=== PATIENT | female | born 1970 | race Two or more races ===

== ENCOUNTER 2016-11-01 10:45 | Outpatient (CLI) | payer OTHER ==
[~2016-11-01] VITALS: Ht 165.1 cm; Wt 60.0 kg
[2016-11-01 10:59] VITALS: BP 109/79; PULSE 86; RESP 18; Ht 165.1 cm; Wt 60.0 kg
[2016-11-01] MEDS ORDERED: MESA800T2 PO (11:17)
[2016-11-01] MEDS ORDERED: HYDR2TAB15 PO (11:17)
[2016-11-01] MEDS ORDERED: URSO250T10 PO (11:17)
--- NOTE | 2016-11-01 19:39 | CONS ---
[facility] INITIAL OUTPATIENT CONSULTATION NOTE PLACE OF SERVICE: [facility]. 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 This is a very rare tumor , and there is paucity of data regarding appropriate management. Therefore, none of our recommendations will be based on strong data. Given the wide metastasis of this disease, I believe that the patient can benefit from further chemotherapy, albeit lower dose or perhaps a different regimen that the patient could tolerate in order for us to get the most benefit from systemic chemotherapy. If the patient's tumor biology proves to be significantly responsive as it has, it may open opportunity for us to consider aggressive management in the near future, including liver resection, if we can demonstrate that the other lesions have been controlled and that there is agreement among a multidisciplinary review committee that this is the appropriate approach. I asked the patient for her permission for me to present her case in a multidisciplinary fashion, and I also held the phone conversation with Dr. Pizarro. She has already seen Dr. Machado at [facility] for a second opinion oncology, and also encouraged her to seek a surgical opinion as a second opinion as well from Dr. Chintan Goff, and depending on her insurance , I have asked our office to assist with getting her to a qualified hepatobiliary surgeon for a second opinion. I am hopeful that with aggressive multimodal treatment, which could include further chemotherapy, as well as local treatment to the liver including transarterial chemoembolization and radioembolization, that we could get the patient to a point where enough time has passed and her tumor has remained stable enough that could open up possibility of consideration for surgical resection, but I did not recommend that to be the primary approach at this time. I answered all of the patient's and her significant other's questions to the best of my ability, and I believe that they appeared to understand and agreed with the plans. With the above assessment, I have recommended the followin. Consideration for restart of systemic chemotherapy, perhaps with a lower dose or a different regimen for the patient to be able to tolerate. 2. Multidisciplinary Tumor Board presentation. 3. Consideration for transarterial chemoembolization with perhaps combination radioembolization as well. 4. Even though these tumors are not very sensitive to radiation therapy to consider possible focal radiation therapy to the bones if it was deemed appropriate by radiation oncology and by our multidisciplinary tumor boards. 5. Follow up after above is done with continued surveillance CTs and possible consideration for surgical intervention if the disease proves to be stable. Thank you again for allowing us to participate in the care of this very pleasant lady and her wonderful family. If there are any questions, please feel free to call me at [phone]. TOTAL VISIT TIME: 60 minutes, of which more than half was spent in face-to- face discussion with the patient, discussions with her boyfriend, as well as coordination of care between multiple physicians and providers. UPDATED CLINICAL SUMMARY: A very pleasant, but unfortunate, 46-year-old young lady with some comorbidities including primary sclerosing cholangitis and ulcerative colitis diagnosed in 1994. An otherwise fairly healthy woman who was diagnosed with a liver mass on an ultrasound done in March 2016 that was initially part of workup of her elevated liver function tests. This ultrasound unfortunately showed a 3.6-cm gallbladder mass on 03/26/2016. Follow-up CT of the abdomen with contrast on 04/07/2016 showed an ill-defined and heterogeneously enhancing mass involving the fundus and body of the gallbladder wall, with the largest component of the mass measuring approximately 2.6 x 2.5 x 3.2 cm extending into the celestino hepatitis with loss of fat plane between this mass and the adjacent left lobe of the liver, as well as common hepatic/common bile duct and duodenum. Findings were in favor of gallbladder carcinoma. Several heterogeneously enhancing lesions within hepatic segments 4B and likely a small lesion in hepatic segment 8 were also concerning for metastasis. There were multiple mildly enlarged and prominent celestino hepatis, gastrohepatic ligament, retroperitoneal and mesenteric lymph nodes suspicious for metastasis. Subtle omental soft tissue stranding was also noted. She also underwent MRI of the abdomen with and without contrast on 05/18/2016 that showed findings compatible with gallbladder carcinoma with direct extension into adjacent liver with 5.5 x 7 cm right hepatic lobe mass as well as a 1.2-cm mass in the anterior left hepatic border. Patient had a PET/CT on 06/29/2016 that showed infiltrative hypermetabolic mass involving a portion of the liver and gallbladder, and no evidence of local or additional hypermetabolic metastatic disease. Brain MRI in 07/29/2016 showed no evidence of metastatic disease. The patient underwent 3 cycles of cisplatin and etoposide after biopsy of the lesion on 05/14/2016 showed high-grade fairly large cell neuroendocrine carcinoma, TTF-1 positive, Ki-67 99%. Follow-up PET/CT 10/18/2016 demonstrated no hypermetabolic activity with interval resolution of the hypermetabolic activity associated with the liver and gallbladder with near complete interval resolution of the large hepatic mass, which now measured 1.5 cm. There was mild remaining gallbladder wall thickening. The previously visualized osteolytic lesions that included left transverse process of T1, sacrum and right 10th rib laterally, as well as osseous shows areas involving the C6, T5, T7, and T10 vertebral bodies, and the left acetabulum, and possible early developing lesions involving the right femur, right acetabulum, and iliac bones , were essentially all thought to be sclerotic without associated hypermetabolic activity. Patient also had a chest CT and abdominal and pelvic CT with contrast on 10/26/2016 that showed essentially similar findings. CO-MORBIDITIES: 1. History of ulcerative colitis in 1994. 2. History of primary sclerosing cholangitis 1994 (although there is a note from Dr. Stewart disputing this diagnosis). 3. Mention of in the chart, but reported to be inaccurate by the patient (another note mentions a child) 4. History of breast bilateral implants (silicone). 5. Hyperlipidemia. 6. Mention of 1 with 1 living child, although not reported by the patient. 7. Diagnosis of high-grade fairly large cell neuroendocrine carcinoma of gallbladder summer, with treatment with cisplatin and etoposide (3/5 cycles completed) with significant response to widely metastatic disease. 8. 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 The patient herself reported feeling relatively well after finishing the third cycle of chemotherapy, although she had a very difficult time with the third cycle and did not want to have another cycle of chemotherapy administered. She reports having improvement in her appetite, and her energy level and activity level are fairly back to normal. Specifically, she thought that she could go up 2 flights of stairs without any significant difficulty. She has had a few pound weight loss over the course of the last few weeks with treatment with chemotherapy, but does not report any blood in the stool or urine, or changes in the bowel or bladder habits. She has had no other major concurrent medical problems, and it appears that her ulcerative colitis has been under control with intermittent use of Asacol. Last reported colonoscopy was 1 to 2 years ago in [place]. She has never had any issues with pruritus or jaundice. Even though the chart mentions primary sclerosing cholangitis, her java performance engineer and pmp do not report an actual diagnosis of this disease, and the patient was treated with ursodiol. ALLERGIES: NO KNOWN DRUG ALLERGIES. MEDICATIONS: Dilaudid, Asacol, and ursodiol. SOCIAL HISTORY: The patient lives with family and has a dedicated boyfriend. She did not report to me when I asked her, but there is mention of it in the chart on multiple notes, as well as a living child. Currently, she is not working. She does not report any smoking or drinking or intravenous drug use. FAMILY HISTORY: Negative for major medical, surgical, or oncologic problems in the family. REVIEW OF SYSTEMS: Other than the above-mentioned, there are no other pertinent positives or pertinent negatives in a complete 14-point review of systems. PHYSICAL EXAMINATION: GENERAL: The patient appears to be a very pleasant lady of /[place] descent, sitting in a chair comfortably and in no acute distress. She is wearing a hat reminiscent of covering hair loss. BMI is 22.0. She is otherwise in fairly good spirits and appears well nourished and well developed. VITAL SIGNS: Her temperature is 98.2, blood pressure 109/79, pulse 86, respiratory rate 18, pulse oximetry 97% on room air. HEENT: Normocephalic and atraumatic. Extraocular muscles and hearing are grossly intact bilaterally and symmetrically. Sclerae are nonicteric. Oral cavity is clear; oral mucosa appeared to be pink and moist. Dentition: fair. NECK: Supple. There is no lymphadenopathy or JVD. There is no submental, submandibular or supraclavicular lymphadenopathy. CHEST: Rises symmetrically with each breath; patient is breathing comfortably. There are no audible wheezes, rales or rhonchi on the gross exam. HEART: Pulse is regular and palpable on the right wrist. Capillary refill was normal. Carotid pulses are palpable bilaterally and symmetrically in the neck. EXTREMITIES: Lower extremities contain no pitting edema around the ankles bilaterally and symmetrically. ABDOMEN: Abdomen is soft, nontender and nondistended. There are no peritoneal signs or guarding. No evidence of ascites, organomegaly, caput medusae, engorged subcutaneous veins, or other abnormalities. SKIN: Appears to be pink and feels warm to touch. NEUROLOGIC: Awake, alert, and follows commands appropriately. LABORATORY VALUES: Dated 09/27/2016, white blood cell count 9.7, hemoglobin 10.2, platelets 217, creatinine 0.8, CO2 24. Total bilirubin 0.7, AST 85, ALT 66, alkaline phosphatase 222, albumin 4.2. IMAGING: Reviewed in detail above. PATHOLOGY: Dated 05/14/2016 showed high-grade neuroendocrine carcinoma with CK7 positive, TTF-1 positive, estrogen receptor weakly positive, and CDX2 focal positive with rest of markers negative, and Ki-67 high at 99%. Napsin-A was negative and synaptophysin was positive. CA-19.9 was focally positive. This was also reviewed at [facility], and the diagnosis was again reaffirmed. Dictated By: MARC STEINER/EMI Conf#: [id number] DID#: [id number] CC: Flory Cortez; Timi Bo; Ainsley Pizarro;*EndCC* [facility]
== END 2016-11-01 17:00 | disposition home or self-care (01) ==
LOC: HPC 10:45
PROVIDERS: ATTEND Transplant Surgery
DX: C7A.1 Malignant poorly differentiated neuroendocrine tumors (principal); E78.5 Hyperlipidemia, unspecified; R16.0 Hepatomegaly, not elsewhere classified
CPT/HCPCS: G0463

== ENCOUNTER 2016-11-17 15:10 | Outpatient (CLI) | payer OTHER ==
[~2016-11-17] VITALS: Ht 165.1 cm; Wt 58.2 kg
[~2016-11-17 15:10] MED LIST: HYDR2TAB15 PO; MESA800T2 PO; URSO250T10 PO
[2016-11-17 15:35] VITALS: BP 122/78; PULSE 93; RESP 16; Ht 165.1 cm; Wt 58.2 kg
--- NOTE | 2016-11-17 16:09 | PN ---
Date/Time of Note Date/Time of Note DATE: 11/17/16 TIME: 16:01 Assessment/Plan Assessment/Plan Assessment/Plan [facility] Progress Note Date of Service: 11/17/16 Today's Impression & Plan: Overall stable. MDTB presentation this am confirmed recommendation for continuation of systemic chemotherapy. I discussed with patient and her boyfriend and answered all their questions. With above assessment, I've recommended the following for today: 1. F/u with Dr. Jacob re continuation of systemic chemo (recommendation was for consideration for dose modulation such as splitting cisplatin dose in to two days or similar changes to help alleviate her symptoms) 2. F/u with Dr. Goff as planned for tomorrow 3. I recommended that patient let her family in [place] know since most of her support structure is in [place] 4. We will follow from periphery for now Thank you again for your great care of this very pleasant patient and wonderful family. If there are any questions, please feel free to call me at [phone]. TOTAL VISIT TIME: 20 minutes of which more than half was spent in [id number] discussion with the patient, possibly including family, as well as coordination of care between multiple physicians and providers. Disclaimer: Inadvertent spelling or grammatical errors are likely due to EHR/ dictation software use and do not reflect on the overall quality of patient care. Updated Clinical Summary: A very pleasant, but unfortunate, 46-year-old young lady with some comorbidities including primary sclerosing cholangitis and ulcerative colitis diagnosed in 1994. An otherwise fairly healthy woman who was diagnosed with a liver mass on an ultrasound done in March 2016 that was initially part of workup of her elevated liver function tests. This ultrasound unfortunately showed a 3.6-cm gallbladder mass on 03/26/2016. Follow-up CT of the abdomen with contrast on 04/07/2016 showed an ill-defined and heterogeneously enhancing mass involving the fundus and body of the gallbladder wall, with the largest component of the mass measuring approximately 2.6 x 2.5 x 3.2 cm extending into the celestino hepatitis with loss of fat plane between this mass and the adjacent left lobe of the liver, as well as common hepatic/common bile duct and duodenum. Findings were in favor of gallbladder carcinoma. Several heterogeneously enhancing lesions within hepatic segments 4B and likely a small lesion in hepatic segment 8 were also concerning for metastasis. There were multiple mildly enlarged and prominent celestino hepatis, gastrohepatic ligament, retroperitoneal and mesenteric lymph nodes suspicious for metastasis. Subtle omental soft tissue stranding was also noted. She also underwent MRI of the abdomen with and without contrast on 05/18/2016 that showed findings compatible with gallbladder carcinoma with direct extension into adjacent liver with 5.5 x 7 cm right hepatic lobe mass as well as a 1.2-cm mass in the anterior left hepatic border. Patient had a PET/CT on 06/29/2016 that showed infiltrative hypermetabolic mass involving a portion of the liver and gallbladder, and no evidence of local or additional hypermetabolic metastatic disease. Brain MRI in 07/29/2016 showed no evidence of metastatic disease. The patient underwent 3 cycles of cisplatin and etoposide after biopsy of the lesion on 05/14/2016 showed high-grade fairly large cell neuroendocrine carcinoma, TTF-1 positive, Ki -67 99%. Follow-up PET/CT 10/18/2016 demonstrated no hypermetabolic activity with interval resolution of the hypermetabolic activity associated with the liver and gallbladder with near complete interval resolution of the large hepatic mass, which now measured 1.5 cm. There was mild remaining gallbladder wall thickening. The previously visualized osteolytic lesions that included left transverse process of T1, sacrum and right 10th rib laterally, as well as osseous shows areas involving the C6, T5, T7, and T10 vertebral bodies, and the left acetabulum, and possible early developing lesions involving the right femur , right acetabulum, and iliac bones, were essentially all thought to be sclerotic without associated hypermetabolic activity. Patient also had a chest CT and abdominal and pelvic CT with contrast on 10/26/2016 that showed essentially similar findings. Comorbidities: 1. History of ulcerative colitis in 1994. 2. History of primary sclerosing cholangitis 1994 (although there is a note from Dr. Stewart disputing this diagnosis). 3. Mention of in the chart, but reported to be inaccurate by the patient (another note mentions a child) 4. History of breast bilateral implants (silicone). 5. Hyperlipidemia. 6. Mention of 1 with 1 living child, although not reported by the patient. 7. Diagnosis of high-grade fairly large cell neuroendocrine carcinoma of gallbladder summer, with treatment with cisplatin and etoposide (3/5 cycles completed) with significant response to widely metastatic disease. 8. Rhinoplasty Subjective: No major events or complaints; no abd pain; no n/v/d; no sob or cp; + flatus; + BM and normal; + activity Objective: Vitals: See below Exam: GENERAL: On exam, the patient was sitting in a chair and appeared to be comfortable and in no acute distress. ABDOMEN: Soft, nontender and nondistended. There are no peritoneal signs or guarding. SKIN: Skin appears to be pink and feels warm to touch. NEUROLOGIC: Patient is awake, alert, and follows commands appropriately. MARC WASHINGTON M.D. Nov 17, 2016 16:09
== END 2016-11-17 17:00 | disposition home or self-care (01) ==
LOC: HPC 15:10
PROVIDERS: ATTEND Transplant Surgery
DX: C23 Malignant neoplasm of gallbladder (principal); E78.5 Hyperlipidemia, unspecified
CPT/HCPCS: G0463